=== PATIENT | female | born 1990 | race Two or more races ===

== ENCOUNTER 2022-07-03 12:42 | Emergency (ER) | payer OTHER ==
[2022-07-03 13:12] VITALS: BP 105/65; PULSE 95; RESP 18; TEMP 98.2; BMI 22.6
[2022-07-03] MEDS ORDERED: ONDANSETRON 4 MG/2 ML VIAL IVPUSH ONE ×2 (13:46→19:01)
[2022-07-03] MEDS ORDERED: ACETAMINOPHEN 1000 MG/100 ML BAG IVPB ONE (13:46)
[2022-07-03] MEDS ORDERED: SODIUM CHLORIDE 0.9% 500 ML INFUS.BAG IV ONE (13:46)
[2022-07-03] MEDS ORDERED: ONDANSETRON 4 MG/2 ML VIAL ONE ×2 (14:01→19:06)
[2022-07-03] MEDS ORDERED: ACETAMINOPHEN INJECTION 100 ML IVPB ONE (14:01)
[2022-07-03 14:33] LABS: BASO % 0.7 % (0-2.0); EOS % 0.1 % (0-4.5); HEMATOCRIT 37.6 % (32.4-45.2); HEMOGLOBIN 12.5 GM/dL (10.7-15.3); LYMPH % 15.3 % (8-40); MCH 30.8 pg (25.7-33.7); MCHC 33.3 g/dl (32.0-36.0); MEAN CELL VOLUME 92.4 fl (80-96); MONO % 6.4 % (3.8-10.2); NEUT % 77.5 % (42.8-82.8); PLATELET COUNT 266 10^3/uL (134-434); RBC 4.07 M/mm3 (3.60-5.2); RDW 13.1 % (11.6-15.6); WHITE BLOOD COUNT 12.3 K/mm3 (4.0-10.0)
[2022-07-03 14:35] LABS: EPI CELLS >36 /uL (0-25.1); HYALINE CASTS 15 /uL (0-3.1); URINE APPEARANCE CLOUDY; URINE BACTERIA 66 /uL (0-1359); URINE BILIRUBIN 1+ (NEGATIVE); URINE COLOR ORANGE; URINE GLUCOSE (UA) NEGATIVE (NEGATIVE); URINE KETONE TRACE (NEGATIVE); URINE LEUK ESTERASE TRACE (NEGATIVE); URINE NITRITE NEGATIVE (NEGATIVE); URINE PROTEIN 1+ (NEGATIVE); URINE RBC 376 /uL (0-23.9); URINE WBC 68 /uL (0-25.8)
[2022-07-03 14:52] LABS: ALBUMIN 3.8 g/dl (3.4-5.0); BLOOD UREA NITROGEN 16.9 mg/dL (7-18); CALCIUM 8.8 mg/dL (8.5-10.1); MAGNESIUM 2.2 mg/dL (1.8-2.4)
[2022-07-03 14:58] LABS: BILIRUBIN,TOTAL 0.6 mg/dL (0.2-1); TOT PROT 7.6 g/dl (6.4-8.2)
[2022-07-03] MEDS ORDERED: KETOROLAC TROMETHAMINE 15 MG/ML VIAL IVPUSH ONE (18:15)
[2022-07-03] MEDS ORDERED: AMOX TR/POT CLAV 875MG/125MG TABLETS (FP) PO ONE (18:48)
[2022-07-03] MEDS ORDERED: SULFAMETHOXAZOLE/TRIMETHOPRIM 800MG/160MG D.S. TABLET ONE (18:54)
[2022-07-03] MEDS ORDERED: KETOROLAC TROMETHAMINE 15 MG/ML VIAL ONE (18:55)
[2022-07-03] MEDS ORDERED: AMOX TR/POT CLAV 875MG/125MG TABLETS (FP) ONE (18:55)
== END 2022-07-03 19:11 | disposition home or self-care (01) ==
LOC: JER 12:42
PROC: 3E0333Z Introduction of Anti-inflammatory into Peripheral Vein, Percutaneous Approach (ICD-10-PCS; principal; 2022-07-03)
PROC: 3E0333Z Introduction of Anti-inflammatory into Peripheral Vein, Percutaneous Approach (ICD-10-PCS; 2022-07-03)
PROC: 3E033GC Introduction of Other Therapeutic Substance into Peripheral Vein, Percutaneous Approach (ICD-10-PCS; 2022-07-03)
PROC: 3E033GC Introduction of Other Therapeutic Substance into Peripheral Vein, Percutaneous Approach (ICD-10-PCS; 2022-07-03)
DX: K52.89 Other specified noninfective gastroenteritis and colitis (principal)
CPT/HCPCS: 0241U-QW; 36415; 74177-TC; 76830-TC; 80053; 81003; 83690; 83735; 84703; 85025; 87086; 99285-25; Q9967